=== PATIENT | female | born 1970 | race Caucasian/White ===

== ENCOUNTER → 2020-06-02 13:45 | Outpatient (CLI) | payer OTHER, SELFPAY ==
--- NOTE | 2020-06-02 13:50 | RAD_ITS ---
STUDY: X-RAY - RIGHT KNEE REASON FOR EXAM: Female, 50 years old. PAIN TO KNEE S/P FALL ONTO KNEE x1 MONTH AGO TECHNIQUE: 4 view(s) of the knee. COMPARISON: None. FINDINGS: Degenerative spur seen along the lateral femoral condyle. Normal visualized proximal tibia and fibula. Normal proximal tibiofibular articulation. Normal medial femorotibial compartment. Normal lateral femorotibial compartment. Normal patellofemoral articulation. Small joint effusion. RAD/Knee 4 or More Views IMPRESSION: Degenerative arthrosis. Small joint effusion. Electronically Signed: Jorge Barry, at 15:26 EDT , Service support ,
== END ==
PROVIDERS: PCP Internal Medicine; Referring Provider Nurse Practitioner; Visit Provider Nurse Practitioner
DX: M25.561 Pain in right knee (principal)
CPT/HCPCS: 73564

== ENCOUNTER 2020-06-19 08:53 | Emergency (ER) | payer OTHER, SELFPAY ==
[2020-06-11 09:00] VITALS: BMI 33.3
[2020-06-19 08:54] VITALS: BP 181/109; PULSE 83; RESP 16; TEMP 36.2; O2SAT 99; BMI 33.4
--- NOTE | 2020-06-19 09:06 | CT_ITS ---
STUDY: CTA HEAD AND NECK WITH CONTRAST REASON FOR EXAM: Female, 50 years old. DIZZINESS X 2 DAYS, HTN. RADIATION DOSAGE (If Supplied By Facility): CTDIvol = ( 24.292 ) mGy, DLP = ( 1492.28 ) mGycm TECHNIQUE: CT angiography was performed with a multi-detector CT scanner. Data acquisition was obtained from the skull base through the vertex following intravenous administration of IV 100mL [id number]-[id number]. MIP images were reconstructed from the axial data set. Post-processing of the angiographic images was performed, with multiplanar reformation and 3D reconstruction. Individualized dose optimization techniques were used for this CT. COMPARISON: No relevant priors. FINDINGS: Normal bilateral petrous carotid arteries. Normal right cavernous carotid artery with a normal supraclinoid bifurcation. Normal left cavernous carotid artery with a normal supraclinoid bifurcation. Normal right A1 segments of the anterior cerebral artery. Normal left A1 segments of the anterior cerebral artery. Normal intact anterior communicating artery (ACOM). Normal bilateral A2 segments of the anterior cerebral arteries. Normal right M1 and M2 segments of the middle cerebral arteries, with a normal M1 bifurcation. Normal left M1 and M2 segments of the middle cerebral arteries, with a normal M1 bifurcation. Normal right posterior communicating artery (PCOM). Normal left posterior communicating artery (PCOM). Normal bilateral vertebral arteries. Normal basilar artery with a normal basilar bifurcation. The visualized bilateral superior cerebellar (SCA) arteries are normal. Normal bilateral P1, P2 and visualized P3 segments of the posterior cerebral arteries. There is no demonstrated aneurysm of the [place] of [place]. There is opacification of the left maxillary sinus. AORTIC ARCH: Normal visualized aortic arch. Normal origins of the brachiocephalic, left common carotid, and left subclavian arteries. RIGHT CAROTID ARTERIES: Normal right common carotid artery (CCA). Normal right common carotid bulb. Normal origin of the right internal carotid (ICA) artery without a hemodynamically significant stenosis. Normal visualized cervical portion of the right internal carotid artery. Normal origin of the right external carotid artery (ECA). LEFT CAROTID ARTERIES: Normal left common carotid artery (CCA). Normal left common carotid bulb. Normal origin of the left internal carotid (ICA) artery without a hemodynamically significant stenosis. Normal visualized cervical portion of the left internal carotid artery. Normal origin of the left external carotid artery (ECA). VERTEBRAL ARTERIES: Normal bilateral vertebral arteries. CT/CTA Head AND Neck W/ Contrast IMPRESSION: Normal CTA Head and neck with contrast. Opacification of the left maxillary sinus. Electronically Signed: Jorge Barry, at 10:29 EDT , Service support ,
--- NOTE | 2020-06-19 09:12 | ED.DCSUM_ITS ---
- ER Visit Summary Date of Service: 06/19/20 Chief Complaint: Dizziness History of Present Illness: The patient is a 50 F presenting with intermittent vertigo symptoms which started yesterday. Patient states she woke up and turned over and started having room spinning sensation. This improved throughout the day. Today she noticed when she turned her head she had similar symptoms of room spinning. She states she almost fell but did not fall. She denies lightheadedness or syncope. Denies numbness, weakness, vision changes, other neurologic symptoms. Denies fever or other complaints. Physical Examination: Vitals are stable. Blood pressure 181/109. Patient is afebrile. Alert no acute distress. HEENT exam is unremarkable. TMs normal bilaterally Neck is supple. Lungs are clear and equal bilaterally. Heart is regular rate and rhythm. Abdomen is soft nontender nondistended. Extremities are unremarkable. Skin is warm and dry. No focal neurologic deficit. NIH 0 Remainder of exam is unremarkable. Emergency Department Course and Treatment: CBC, chemistries unremarkable. Repeat blood pressure 160/101. Normal CTA Head and neck with contrast. Patient has intermittent symptoms but symptoms only last for a few seconds when she turns her head, it then resolves. She will be given prescription for meclizine. Patient has a scheduled appointment with her primary care physician next week. She is advised to monitor her blood pressure and follow-up for blood pressure recheck. Advised return to the ED for worsening complaints. Disposition: Discharge home Impression: Benign positional vertigo This note was generated with [employer] dictation software. It may contain incorrect words, spelling, and punctuation that were not noted in review of the chart prior to signing ED Disposition - Plan for ED Patient: Instructions: ED BPV Vertigo Prescriptions: Meclizine HCl [Antivert] 12.5 mg PO 4X/DAY PRN PRN #20 tab PRN Reason: Vertigo Prescription Printed Referrals: Nicole Alejandro DO [Primary Care Provider] -
[2020-06-19 09:36] LABS: Basophil# 0.07 X10^3/uL; Basophil% 1.4 % (0-1); Eosinophil# 0.19 X10^3/uL; Eosinophils% 3.8 % (0-5); Hematocrit 37.8 % (37-47); Hemoglobin 12.2 g/dL (12.0-15.0); Lymphocyte % 28.2 % (19-41); Mean Corp Hgb Conc 32.3 g/dL (32-36); Mean Corpuscular Hgb 27.9 pg (27.0-32.0); Mean Corpuscular Volume 86.3 fL (81-99); NRBC Flagged by Analyzer 0 % (0-5); Neutrophil % 60.4 % (47-70); Platelet Count 275 K/mm3 (150-450); RBC Distribution Width CV 12.3 % (11.6-14.6); RBC Distribution Width SD 38.8 fl (35.1-43.9); Red Blood Count 4.38 M/mm3 (4.2-5.4)
[2020-06-19 09:48] LABS: Anion Gap 4 (5-15); BUN 13 mg/dL (7-18); BUN/Creat Ratio 15.6 RATIO (10-20); Calcium,Total 9.1 mg/dL (8.5-10.1); Chloride 106 mmol/L (98-107); Creatinine, Serum 0.84 mg/dL (0.55-1.02); EST Glomerular Filtration Rate 77 mL/min (>60); Est Glom Filt Rate - Afr Amer 93 mL/min (>60); Estimated Creatinine Clearance 80.83 ml/min; Glucose 99 mg/dL (74-106); Sodium Level 140 mmol/L (136-145)
[2020-06-19 10:39] VITALS: BP 158/109; PULSE 82; RESP 18; O2SAT 98
--- NOTE | 2020-06-19 10:44 | ED.RN ---
spit mask removed. pt aware that events that happen will be dictated by her behavior
--- NOTE | 2020-06-19 11:08 | ED.DEP ---
ED Disposition - Plan for ED Patient: Instructions: ED BPV Vertigo Prescriptions: Meclizine HCl [Antivert] 12.5 mg PO 4X/DAY PRN PRN #20 tab PRN Reason: Vertigo Prescription Printed Referrals: Nicole Alejandro DO [Primary Care Provider] -
[2020-06-19 11:19] VITALS: BP 158/109; PULSE 70; RESP 18; O2SAT 99
== END 2020-06-19 11:22 | disposition home or self-care (01) ==
PROVIDERS: Emergency Provider Emergency Medicine; PCP Internal Medicine
DX: H81.10 Benign paroxysmal vertigo, unspecified ear (principal)
CPT/HCPCS: 70496; 70498; 80048; 85025; 99283; Q9967; A4216

== ENCOUNTER 2021-10-01 14:40 | Outpatient (CLI) | payer OTHER, SELFPAY ==
[2021-10-01] MEDS: 0.9% Saline Lock 10 ML Syringe IV (14:44)
[2021-10-01 14:45] VITALS: BP 126/88; PULSE 108; RESP 16; TEMP 37.2; O2SAT 96; BMI 34.9
[2021-10-01 15:06] VITALS: BP 104/69; PULSE 90; RESP 16; O2SAT 99
--- NOTE | 2021-10-01 15:07 | NURSING ---
PT C/O OF NAUSEA, AND LIGHT HEADED. PT ASSISTED TO SUPINE POSITION. INFUSION STOPPED. VS TAKEN. COOL CLOTH APPLIED TO FOREHEAD.
--- NOTE | 2021-10-01 15:08 | NURSING ---
PT REPORTS DIZZINESS AND NAUSEA DONE. INFUSION RETARTED AT 150CC/HR.
[2021-10-01 15:36] VITALS: BP 132/81; PULSE 89; RESP 16; TEMP 37.9; O2SAT 98
[2021-10-01 16:27] VITALS: BP 136/91; PULSE 99; RESP 16; TEMP 37.2; O2SAT 98
== END 2021-10-01 16:34 | disposition home or self-care (01) ==
LOC: MS3OUT 14:40 → MS3 14:41
PROVIDERS: PCP Internal Medicine; Referring Provider Nurse Practitioner Acute Care; Visit Provider Nurse Practitioner Acute Care
DX: Z23 Encounter for immunization (principal); U07.1 COVID-19
CPT/HCPCS: J7050; M0245; Q0245; A4216